=== PATIENT | female | born 1960 | race Caucasian/White ===

== ENCOUNTER 2019-04-07 09:47 | Outpatient (CLI) | payer BC, OTHER | END 2019-04-07 23:59 | disposition home or self-care (01) | LOC: CFH 09:47 | PROVIDERS: ATTEND Internal Medicine | DX: Z12.2 Encounter for screening for malignant neoplasm of respiratory organs (principal); Z87.891 Personal history of nicotine dependence | CPT/HCPCS: G0297 ==